=== PATIENT | male | born 1965 | race Caucasian/White ===

== ENCOUNTER 2023-04-12 12:20 | Emergency (ER) | payer BC ==
[~2023-04-12] VITALS: Ht 185.4 cm; Wt 104.3 kg
[2023-04-12 12:20] VITALS: BP_SYST 145; PULSE 89; RESP 17; TEMP 97.7; O2SAT 97
[2023-04-12] MEDS ORDERED: TRIAMCINOLONE ACETONIDE 40 MG/ML IM ONE (13:15)
[2023-04-12] MEDS ORDERED: DOXY100C5 PO (13:20)
[2023-04-12] MEDS ORDERED: CLOB15OI17 TP (13:24)
[2023-04-12] MEDS ORDERED: CLOB50SO2 TP (13:24)
== END 2023-04-12 13:54 | disposition home or self-care (01) ==
LOC: SED 12:20
DX: L03.116 Cellulitis of left lower limb (principal); L03.115 Cellulitis of right lower limb; L20.9 Atopic dermatitis, unspecified; R21 Rash and other nonspecific skin eruption; Z88.1 Allergy status to other antibiotic agents; Z79.899 Other long term (current) drug therapy
CPT/HCPCS: 99283; 96372; J3301

== ENCOUNTER 2024-04-18 18:10 | Emergency (ER) | payer SELFPAY ==
[~2024-04-18] VITALS: Ht 185.4 cm; Wt 111.1 kg
[~2024-04-18 18:10] MED LIST: CLOB15OI17 TP; CLOB50SO2 TP; DOXY100C5 PO
[2024-04-18 18:27] VITALS: BP_SYST 124; PULSE 105; RESP 16; TEMP 99.6; O2SAT 96
[2024-04-18 19:16] VITALS: BP_SYST 124; PULSE 100; RESP 16; TEMP 98.8; O2SAT 96
== END 2024-04-18 19:16 ==
LOC: SED 18:10
DX: Z02.89 Encounter for other administrative examinations (principal); Z88.1 Allergy status to other antibiotic agents; V89.2XXA Person injured in unspecified motor-vehicle accident, traffic, initial encounter; Y93.89 Activity, other specified; Y92.89 Other specified places as the place of occurrence of the external cause; Y99.8 Other external cause status
CPT/HCPCS: 99283